=== PATIENT | female | born 1995 | race Caucasian/White ===

== ENCOUNTER 2018-02-03 23:05 | Emergency (ER) | payer SELFPAY ==
--- NOTE | 2018-02-03 23:10 | EDPHY ---
H & P Source: Patient Time Seen by Provider: 02/03/18 23:10 HPI/ROS: HPI CHIEF COMPLAINT: Overdose, Depression, ETOH intoxication HISTORY OF PRESENT ILLNESS: 22-year-old female, presents to the emergency room by private vehicle for acute alcohol intoxication and possible ingestion of pills. She presents intoxicated with alcohol. Has horizontal beating nystagmus. Slurring her speech. No trauma. Friends report she may have taken lorazepam, mirtazapine, and flexeril. Friends report possible SI/Depression. Unclear how many pills she took Or when. History is limited due to patient's acute alcohol intoxication. Past Medical History: History of Depression. Past Surgical History: No surgical history Social History: Alcohol this evening. Family History: Noncontributory ROS REVIEW OF SYSTEMS: 10 Systems were reviewed and negative with the exception of the elements mentioned in the history of present illness. Exam Constitutional intoxicated, smells of alcohol, slurring her speech, however wake triage nursing summary reviewed, vital signs reviewed, awake/alert. Eyes normal conjunctivae and sclera, EOMI, PERRLA. HENT normal inspection, atraumatic, moist mucus membranes, no epistaxis, neck supple/ no meningismus, no raccoon eyes. Respiratory clear to auscultation bilaterally, normal breath sounds, no respiratory distress, no wheezing. Cardiovascular rate normal, regular rhythm, no murmur, no edema, distal pulses normal. Gastrointestinal soft, non-tender, no rebound, no guarding, normal bowel sounds, no distension, no pulsatile mass. Genitourinary no CVA tenderness. Musculoskeletal no midline vertebral tenderness, full range of motion, no calf swelling, no tenderness of extremities, no meningismus, good pulses, neurovascularly intact. Skin pink, warm, & dry, no rash, skin atraumatic. Neurologic , intoxicated, smells alcohol, awake, alert and oriented x 3, AAOx3 , moves all 4 extremities equally, motor intact, sensory intact, CN II-XII intact, normal cerebellar, normal vision, slurred speech Psychiatric normal mood/affect. Heme/Lymph/Immune no lymphadenopathy. Differential Diagnosis: Includes but is not limited to in a particular order acute alcohol intoxication, dehydration, electrolyte disturbance, medication overdose Medical Decision Making: Plan for this patient full night monitor, IV establishment blood draw, check serum alcohol level, drug screen, Tylenol level , salicylate level. Count her pills in her pill bottle. Re-evaluation: Lorazepam, mirtazapine, cyclobenzaprine were the medication bottle she came with. EKG interpretation by me on record in [employer] system. Impression time of EKG 2323, sinus tach 109. No signs of cardiac arrhythmia no signs of acute ischemia. Intervals are appropriate. Serum alcohol level 172. 2359: Patient here with alcohol intoxication, friends report that she ingested multiple pills for suicidal ideation also upset about her boyfriend. Due to this should be placed on M1 hold needs mental health evaluation after medical clearance. 0600: Patient has been sleeping. Metabolizing alcohol. Patient has been hemodynamically stable here. 0630: Patient up ambulating to the bathroom without difficulty. Admits to drinking alcohol and taking 2 lorazepam a.m. Last. 0700: Signed over to Dr. Hanson. Patient is pending mental health evaluation this morning. (Dada Marquis) Constitutional: Initial Vital Signs Temperature (C) 36.6 C 02/03/18 23:09 Heart Rate 122 H 02/03/18 23:09 Respiratory Rate 16 02/03/18 23:09 Blood Pressure 139/85 H 02/03/18 23:09 O2 Sat (%) 99 02/03/18 23:09 O2 Delivery Mode Room Air Allergies/Adverse Reactions: No Known Allergies Allergy (Unverified 02/03/18 23:11) Home Medications: Medication Instructions Recorded Unobtainable 02/04/18 Medical Decision Making Other Provider: Care assumed at 6:40 a.m. With plan for mental health evaluation when no longer intoxicated. 820: Psychiatric evaluation completed, recommendation of the military logistics specialist and consulting psychiatrist that the hold be lifted and patient discharged, she is not suicidal or appear to be a danger to herself at this time. (Joe Hanson) - Data Points Laboratory Results: Laboratory Results 02/03/18 23:12 02/03/18 23:12 02/04/18 02/03/18 02/03/18 06:20 23:12 23:12 WBC RBC Hgb Hct MCV MCH MCHC RDW Plt Count MPV Neut % (Auto) Lymph % (Auto) Childress % (Auto) Eos % (Auto) Baso % (Auto) Nucleat RBC Rel Count Absolute Neuts (auto) Absolute Lymphs (auto) Absolute Monos (auto) Absolute Eos (auto) Absolute Basos (auto) Absolute Nucleated RBC Immature Gran % Immature Gran # Sodium 141 mEq/L mEq/L (135-145) Potassium 3.4 mEq/L mEq/L (3.3-5.0) Chloride 108 mEq/L mEq/L (97-110) Carbon Dioxide 23 mEq/l mEq/l (22-31) Anion Gap 10 mEq/L mEq/L (8-16) BUN 9 mg/dL mg/dL (7-23) Creatinine 0.7 mg/dL mg/dL (0.6-1.0) Estimated GFR > 60 Glucose 87 mg/dL mg/dL (70-100) Calcium 9.1 mg/dL mg/dL (8.5-10.4) Beta HCG, Qual NEGATIVE Salicylates < 1.0 mg/dL L mg/dL (2.0-20.0) Urine Opiates Screen NEGATIVE (NEGATIVE) Acetaminophen < 10 mcg/mL L mcg/mL (10-30) Urine Barbiturates NEGATIVE (NEGATIVE) Ur Phencyclidine Scrn NEGATIVE (NEGATIVE) Ur Amphetamine Screen NEGATIVE (NEGATIVE) U Benzodiazepines Scrn NON-NEGATIVE H (NEGATIVE) Urine Cocaine Screen NEGATIVE (NEGATIVE) U Marijuana (THC) Screen NEGATIVE (NEGATIVE) Ethyl Alcohol 172 mg/dL H mg/dL (0-10) 02/03/18 23:12 WBC 7.47 10^3/uL 10^3/uL (3.80-9.50) RBC 4.60 10^6/uL 10^6/uL (4.18-5.33) Hgb 13.2 g/dL g/dL (12.6-16.3) Hct 40.7 % % (38.0-47.0) MCV 88.5 fL fL (81.5-99.8) MCH 28.7 pg pg (27.9-34.1) MCHC 32.4 g/dL g/dL (32.4-36.7) RDW 13.4 % % (11.5-15.2) Plt Count 242 10^3/uL 10^3/uL (150-400) MPV 9.6 fL fL (8.7-11.7) Neut % (Auto) 50.4 % % (39.3-74.2) Lymph % (Auto) 38.3 % % (15.0-45.0) Childress % (Auto) 7.1 % % (4.5-13.0) Eos % (Auto) 3.3 % % (0.6-7.6) Baso % (Auto) 0.5 % % (0.3-1.7) Nucleat RBC Rel Count 0.0 % % (0.0-0.2) Absolute Neuts (auto) 3.76 10^3/uL 10^3/uL (1.70-6.50) Absolute Lymphs (auto) 2.86 10^3/uL 10^3/uL (1.00-3.00) Absolute Monos (auto) 0.53 10^3/uL 10^3/uL (0.30-0.80) Absolute Eos (auto) 0.25 10^3/uL 10^3/uL (0.03-0.40) Absolute Basos (auto) 0.04 10^3/uL 10^3/uL (0.02-0.10) Absolute Nucleated RBC 0.00 10^3/uL 10^3/uL (0-0.01) Immature Gran % 0.4 % % (0.0-1.1) Immature Gran # 0.03 10^3/uL 10^3/uL (0.00-0.10) Sodium Potassium Chloride Carbon Dioxide Anion Gap BUN Creatinine Estimated GFR Glucose Calcium Beta HCG, Qual Salicylates Urine Opiates Screen Acetaminophen Urine Barbiturates Ur Phencyclidine Scrn Ur Amphetamine Screen U Benzodiazepines Scrn Urine Cocaine Screen U Marijuana (THC) Screen Ethyl Alcohol Medications Given: Discontinued Medications Sodium Chloride (Ns) 1,000 mls @ 0 mls/hr IV ONCE ONE PRN Reason: Wide Open Stop: 02/03/18 23:16 Last Admin: 02/03/18 23:34 Dose: 1,000 mls Sodium Chloride (Ns) 1,000 mls @ 0 mls/hr IV ONCE ONE PRN Reason: Wide Open Stop: 02/03/18 23:26 Last Admin: 02/03/18 23:33 Dose: 1,000 mls Departure - Departure Disposition: Home, Routine, Self-Care Clinical Impression: Suicidal ideation Alcohol intoxication Qualifiers: Complication of substance-induced condition: uncomplicated Qualified Code(s): F10.920 - Alcohol use, unspecified with intoxication, uncomplicated Condition: Good Instructions: Alcohol Intoxication (ED), Suicide Prevention (ED) Referrals: Dada Medina MD [Medical Doctor] - As per Instructions
[2018-02-03] MEDS ORDERED: NS 1,000 ML IV ONE ×2 (23:15→23:25)
[2018-02-03 23:25] LABS: PLATELET COUNT 242 10^3/uL (150-400)
--- NOTE | 2018-02-04 05:47 | CPEKG ---
Test Reason : OPEN Blood Pressure : / mmHG Vent. Rate : 109 BPM Atrial Rate : 110 BPM P-R Int : 145 ms QRS Dur : 093 ms QT Int : 345 ms P-R-T Axes : 029 010 013 degrees QTc Int : 465 ms Sinus tachycardia Confirmed by Dada Marquis ([id number]) on 02/04/2018 5:47:04 AM Referred By: Confirmed By:Dada Marquis
[2018-02-04 07:15] VITALS: BP 127/92
--- NOTE | 2018-02-04 09:00 | ASMTTLCEVL ---
TLC Evaluation - Basic Information Evaluation Start Date and 02/04/2018 07:30 AM Time Hospital Status Answers: M1 Hold 72-hr M1 Hold Start Date 02/04/2018 12:00 AM and Time Patient statement Notes: I was fine. I had a head ache and panic attack. At times I feel like I cant do stuff and feel not good enough or strong enough. I was in the garage and found my boyfriends sisters pill bottles of Flexaril 10, Ativan 2 and Mirtazapine 30. I took one of each of them to try to sleep. I was not feeling suicidal last night nor now and would like to be able to go home to get some more sleep. Narrative Notes: Pt is a 22 yo, single, not employed, female from [facility], with no reported prior psychiatric history, brought to [facility] by boyfriend, initially on a voluntary basis for alcohol intoxication and possible ingestion of pills. It was initially unclear as to how many of the friends medications pt may have taken, so ED provided placed pt on M1 hold pending medical clearance and sobriety for MH evaluation. Per M1 hold: Patient with SI. Took pills, Alcohol, Depression. Pt reported some recent panic attacks but denied any history of depression. Diagnosis History Notes: None reported. Prior suicide attempts Notes: Pt denied any past history of suicide attempts. Prior hospitalizations Notes: Pt denied any past psychiatric hospitalizations. Treatment Responses Notes: N/A. Therapist: None Psychiatrist: None Medications (name, dosage, route, freq uency) Notes: None. The boyfriends sisters medications consisted of Flexaril 10 mg; Ativan 2 mg; and Mirtazapine 30 mg. Allergies/Reaction Notes: NKDA. Sleep Notes: Pt reported having sporadic sleep and wakes often throughout night. Appetite Notes: WNL. Medical/Surgical history Notes: Noncontributory. Substance use history (frequency, intensity, his tory, duration) Notes: Pt reported having first tried alcohol at age 16. She reported typical consumption pattern as drinking 5 times/week, usually a half to a full bottle of wine and a beer. Last night, she reported drinking a small bottle of wine along with 2 shots of Grayson Webb whiskey and 1 can of beer. LAURA at 2312 hrs was .172. Pt denied ever having tried marijuana and denied any history of illicit substance use. UDS positive for benzodiazepine. Family composition Notes: Parents are and reside in [place]. Pt has a brother, age 29 and a sister age 27. Need for family Answers: No participation in patient's care Family psychiatric/substance abuse history Notes: Pt reported family history with mother having bipolar illness and has been hospitalized twice after two separate suicide attempts by hanging; father with history of depression; maternal aunt with history of bipolar illness; and a maternal grandfather with reported history of schizophrenia and was a WWII vet. Developmental history Notes: Pt was born and grew up in [facility]. She denied any childhood history of TBIs, LOC or concussions. She denied any childhood history of physical, emotional or sexual abuse/trauma. Abuse concerns Answers: None Marital status/children Notes: Pt is single, never , no dependents. She has been involved in relationship with her boyfriend, Bon, who resides in [place] for the past 2 years. They would see one another periodically when b.f. would either visit her in [place] or pt would come to [place]. Living situation Notes: Pt reported coming to the [place] about 3 [place] ago and is staying with her boyfriend. Sexual history/orientation Notes: Active. Heterosexual. Peer support/family strengths Notes: Boyfriend and boyfriends sisters. Education level/history Notes: Pt has a high school education. Work history Notes: Pt is not working. Notes: None. Legal Notes: Pt denied any arrest/legal history. Jewish/Spiritual Notes: None identified which might impact treatment. Leisure Notes: Pt reported she enjoys running, horseback riding, archery, singing, playing piano and guitar. Collateral Notes: Boyfriend, Bon, present with pt in ED and corroborated above information. Patient's strengths Answers: Artistic/Creative/Musical (Please select at least TWO strengths): Athletic Honest TLC Evaluation - Mental Status Exam Appearance: Answers: Appropriate Clean Unkempt Eye Contact: Answers: Good/Direct Intermittent Mood: Answers: Euthymic Affect: Answers: Calm Congruent w/ Mood Sad Tearful Behavior: Answers: Appropriate Cooperative Impulsive Passive Speech: Answers: Relevant Logical Clear Coherent Soft Thought Process: Answers: Organized Oriented Alert Goal Oriented Intact Insight: Answers: Fair Judgement: Answers: Fair Manic Signs/Symptoms Answers: Impulsivity Depression Answers: Crying Spells Signs/Symptoms: Diminished Interest Flat Affect Sad Mood Anxiety Signs/Symptoms Answers: Panic Attacks Hallucinations: Answers: None Pt reported to have Answers: No suicidal/self-injuring ideation/behavior? Pt reported to be making Answers: No suicidal/self-injuring threats? Pt reported to have Answers: No aggression/assault ideation/behavior? Pt reported to be making Answers: No aggression/assault threats? Pt exhibits inability to Answers: No care for self/grave disability? Ideation/behavior is Answers: No chronic? Patient has a specific Answers: No plan? Ideation involves Answers: No serious/lethal intent? History of Answers: No suicidal/self-injuring ideation, behavior, or threats? History of Answers: No aggressive/assaultive ideation, behavior, or threats? History of serious Answers: No physical harm to self/others while in treatment setting? [facility] Evaluation - Suicide/Homicide Risk Suicide Risk Factors: Answers: Alcohol/Heavy Drug Use Hx of Suicide Attempt by Family Member Impulsivity Inadequate Social Support Intoxication Lack of Jewish Support Lack/Loss of Employment Single Homicide/violence risk Answers: None factors: Current Suicidal Answers: No Ideation? Current Suicidal Ideation Answers: No in the Past Month? Current Suicidal Answers: No Ideation, Worst Ever? Suicide Internal Answers: Absence of Psychosis Protective Factors: Frustration Tolerance Paula with Stress Suicide External Answers: Social Support Protective Factors: Ranking of patient's Answers: Low suicidal risk: Ranking of patient's Answers: Low homicidal risk: TLC Evaluation - Wrap-up BDI Total Score: 30 BDI Question #2 Score: 1 BDI Question #9 Score: 0 BSS Total Score: 0 AXIS I Diagnosis (include DSM-V and ICD-10 codes), must also be entered in [employer], which is the source of truth. Notes: Alcohol Intoxication, with use disorder, moderate/severe 303.00 (F10.229) In consultation with [facility] ED physician, Joe Hanson MD, Dr. Hanson concurred that pt does not appear to meet 27-65 criteria requiring psychiatric hospitalization as pt does not appear to be an imminent risk of harm to self/others/gravely disabled due to a mental illness condition. Dr. Hanson provided verbal order read back vacating hold at 0825 hrs. Evaluation End Date and 02/04/2018 09:00 AM Time (HH:MARISA): Date Signed: 02/04/2018 08:59 AM Electronically Signed By:Lai Montano
--- NOTE | 2018-02-04 09:01 | ASMTTCLDSP ---
TLC Discharge Disposition Disposition: Answers: Discharge If Answers: Yes DISCHARGED: Patient/family given suicide hotline info & [facility] brochure? Disposition Notes: Notes: Pt stated commitment or ability to keep self safe, denied thoughts of self harm or harm to others. Pt expressed a desire to f/u with [facility] for counseling services. Pt was given local hotline information and [facility] brochure After an Attempt and encouraged to follow up with [facility]. Discharge Concerns/Recommendations: Notes: In consultation with [facility] ED physician, Joe Hanson MD, Dr. Hanson concurred that pt does not appear to meet 27-65 criteria requiring psychiatric hospitalization as pt does not appear to be an imminent risk of harm to self/others/gravely disabled due to a mental illness condition. Dr. Hanson provided verbal order read back vacating M1 hold at 0825 hrs. Was patient given the Answers: Not applicable Inpatient Behavioral Health Prohibited Belongings List while in the ED? Psychiatrist vacating M1 Joe Hanson MD Hold: Date and time M1 hold 02/04/2018 08:25 AM vacated (time format is hh:mm): Type of Hold: Answers: M1/72-hour Hold Hold initiated by: Answers: ED Physician Date Signed: 02/04/2018 09:00 AM Electronically Signed By:Lai Montano
== END 2018-02-04 08:45 | disposition home or self-care (01) ==
LOC: EDBD
DX: Z03.6 Encounter for observation for suspected toxic effect from ingested substance ruled out (principal); F10.920 Alcohol use, unspecified with intoxication, uncomplicated; Y90.6 Blood alcohol level of 120-199 mg/100 ml
CPT/HCPCS: 80305; G0480